=== PATIENT | female | born 1980 | race Caucasian/White ===

== ENCOUNTER 2017-05-30 23:45 | Emergency (ER) | payer SELFPAY ==
[~2017-05-30] VITALS: Ht 160 cm; Wt 65.0 kg
[~2017-05-30 23:45] MED LIST: DOXY100T PO; IBUP-232 PO; NAPR550 PO; PHEN-426 PO; Z.0.NO CURRENT MEDS
[2017-05-30 23:49] VITALS: BP 105/77; PULSE 87; RESP 14; TEMP 98.3; O2SAT 98
--- NOTE | 2017-05-31 00:11 | PD ---
HPI Chief Complaint: Related Problem Time Seen by Provider: 00:04 Travel History International Travel<30 days: No Contact w/Intl Traveler<30days: No Traveled to known affect area: No History of Present Illness HPI Patient is a 37-year-old female who presents to the emergency room for evaluation of possible miscarriage. Patient reports that she started her period today, reports that she was discharged to a [facility] for detox from drugs , reports that her urine test is positive. Patient reports that she is here for possible versus miscarriage versus false positive urine test. Patient with no abdominal pain, no abdominal cramping, no nausea vomiting this time. Patient with no vaginal discharge or bleeding. Patient with no other complaints at this time. PFSH Past Medical History Medical other: Yes (IV drug hx) Tetanus Vaccination: Unknown Influenza Vaccination: No ?: LMP: 04/15/2017 : 2 Past Surgical History Section: Yes Social History Alcohol Use: No Tobacco Use: Yes Substance Use: Yes (IN REHAB ) Allergies-Medications (Allergen,Severity, Reaction): Coded Allergies: Penicillins (Verified Allergy, Severe, 05/31/17) hives in my throat Reported Meds & Prescriptions Reported Meds & Active Scripts Active No Active Prescriptions or Reported Medications Review of Systems General / Constitutional: No: Fever Eyes: No: Visual changes HENT: No: Headaches Cardiovascular: No: Chest Pain or Discomfort Respiratory: No: Shortness of Breath Gastrointestinal: No: Abdominal Pain Genitourinary: Positive: Vaginal Bleeding, No: Dysuria Musculoskeletal: No: Pain Skin: No Rash Neurologic: No: Weakness Psychiatric: No: Depression Endocrine: No: Polydipsia Hematologic/Lymphatic: No: Easy Bruising Physical Exam Narrative GENERAL: NAD SKIN: Focused skin assessment warm/dry. HEAD: Atraumatic. Normocephalic. EYES: Pupils equal and round. No scleral icterus. No injection or drainage. ENT: No nasal bleeding or discharge. Mucous membranes pink and moist. NECK: Trachea midline. No JVD. CARDIOVASCULAR: Regular rate and rhythm. No murmur appreciated. RESPIRATORY: No accessory muscle use. Clear to auscultation. Breath sounds equal bilaterally. GASTROINTESTINAL: Abdomen soft, non-tender, nondistended. Hepatic and splenic margins not palpable. MUSCULOSKELETAL: No obvious deformities. No clubbing. No cyanosis. No edema. NEUROLOGICAL: Awake and alert. No obvious cranial nerve deficits. Motor grossly within normal limits. Normal speech. PSYCHIATRIC: Appropriate mood and affect; insight and judgment normal. Denies si /hi Data Data Last Documented VS Vital Signs Date Time Temp Pulse Resp B/P (MAP) Pulse Ox O2 Delivery O2 Flow Rate FiO2 05/30/17 23:49 98.3 87 14 105/77 (86) 98 Orders Orders Beta Hcg (Quant/Titer) (05/31/17 00:07) Ed Urine Pregnancytest Poc (05/31/17 00:07) Labs Laboratory Tests Test 05/31/17 00:20 Human Chorionic Gonadotropin, Quant LESS THAN 1 MIU/ML MDM Medical Decision Making Medical Screen Exam Complete: Yes Emergency Medical Condition: Yes Medical Record Reviewed: Yes Interpretation(s) Vital Signs Date Time Temp Pulse Resp B/P (MAP) Pulse Ox O2 Delivery O2 Flow Rate FiO2 05/30/17 23:49 98.3 87 14 105/77 (86) 98 Differential Diagnosis Early versus threatened miscarriage versus false positive test Narrative Course Patient urine was negative, hcg quant ordered. patient with no complaints at this time Laboratory Tests Test 05/31/17 00:20 Human Chorionic Gonadotropin, Quant LESS THAN 1 MIU/ML (0-5) patient with neg preg test. patient with false positive preg test Patient will return to [facility] Diagnosis Primary Impression: test negative Patient Instructions: General Instructions Additional Instructions: Return to the emergency room as needed Scripts No Active Prescriptions or Reported Meds Disposition: 01 DISCHARGE HOME Condition: Stable Theresa Jauregui DO May 31, 2017 00:11
== END 2017-05-31 01:28 ==
LOC: NEPD 23:45
DX: Z32.02 Encounter for pregnancy test, result negative (principal); Z72.0 Tobacco use
CPT/HCPCS: 84702; 99284